=== PATIENT | male | born 1940 | race Caucasian/White ===

== ENCOUNTER 2017-12-30 09:10 | Day surgery (SDC) | payer OTHER ==
[~2017-12-30] VITALS: Ht 177.8 cm; Wt 78.0 kg
[~2017-12-30 09:10] MED LIST: CEFAZOLIN 1 GM IVPB PREMIX 50 ML IV ONE
[2017-12-30] MEDS ORDERED: fentaNYL CITRATE/PF 100 MCG/2 ML AMP IVP PRN ×2 (13:30)
[2017-12-30] MEDS ORDERED: ONDANSETRON HCL 4 MG/2 ML VIAL IVP PRN (13:30)
[2017-12-30] MEDS ORDERED: D5/0.45 NS 1,000 ML IV SCH (13:36)
[2017-12-30] MEDS ORDERED: HYDROmorphone 1 MG INJ. 1 MG/ML AMPUL IVP PRN (13:45)
[2017-12-30] MEDS ORDERED: HYDROcodone/ACETAMIN 5-325 MG TAB (NORCO/ VICODIN) PO PRN ×2 (13:45)
[2017-12-30] MEDS ORDERED: MIDAZOLAM HCL 5 MG/ML VIAL (VERSED) IV ONE (13:50)
[2017-12-30] MEDS ORDERED: LR 1,000 ML IV.SOLN IV ONE (13:50)
[2017-12-30] MEDS ORDERED: PROPOFOL 200MG/ 20ML VIAL (DIPRIVAN) IV ONE (13:50)
[2017-12-30] MEDS ORDERED: SEVOFLURANE 15 MIN GAS INH ONE (13:50)
[2017-12-30] MEDS ORDERED: fentaNYL CITRATE/PF 100 MCG/2 ML AMP IVP ONE (13:50)
[2017-12-30 15:52] VITALS: BP_SYST 125
== END 2017-12-30 15:35 | disposition home or self-care (01) ==
LOC: SMU 09:10 → SDS 09:10
PROVIDERS: ATTEND Colon & Rectal Surgery
DX: D12.8 Benign neoplasm of rectum (principal); K21.9 Gastro-esophageal reflux disease without esophagitis; M19.90 Unspecified osteoarthritis, unspecified site; H40.1131 Primary open-angle glaucoma, bilateral, mild stage; H25.093 Other age-related incipient cataract, bilateral; Z98.890 Other specified postprocedural states; B18.2 Chronic viral hepatitis C; Z82.49 Family history of ischemic heart disease and other diseases of the circulatory system; Z87.891 Personal history of nicotine dependence; Z79.899 Other long term (current) drug therapy
CPT/HCPCS: 45190; 88305; J0690; J2250; J2704; J3010; J7120